=== PATIENT | female | born 1955 | race Caucasian/White ===

== ENCOUNTER 2017-11-17 17:39 | Inpatient (IN) | payer OTHER ==
[~2017-11-17] VITALS: Ht 167.6 cm; Wt 71.2 kg
--- NOTE | ~2017-11-17 | EKG ---
[address] [place] [address] ELECTROCARDIOGRAM REPORT Name: STOENY AGUIAR Room #: 402-P [facility] .R.#: [id number] Admission: 11/17/17 Attend Phys: Adalid Larsen DO Discharge: 11/19/17 Date of : 59 Report #: [id number] THIS REPORT FOR: //name// 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: : 1955 Requested By: Poornima Martínez Order Number: [id number] MD: Angel Elam Measurements Intervals [place] Rate: 74 P: 47 DC: 138 QRS: 34 QRSD: 101 T: 32 QT: 397 QTc: 441 Interpretive Statements Sinus rhythm RSR' in V1 or V2, right VCD Compared to ECG 03/18/2015 11:21:52 RSR' in V1 or V2 now present Sinus bradycardia no longer present Electronically Signed On 11-20-2017 7:47:08 CDT by Angel Elam [email or web address] <ELECTRONICALLY SIGNED> By: Angel Elam MD, [facility] 11/20/17 0747 180 180 Angel Elam MD, [facility] /EPI
[~2017-11-17 17:39] MED LIST: TRAZODONE HCL50 MG PO
[2017-11-17 17:46] VITALS: BP 132/92
[2017-11-17] MEDS ORDERED: TRESIBA FL100 UNIT/1 (17:52)
[2017-11-17] MEDS ORDERED: NOVOLIN R (17:52)
[2017-11-17] MEDS ORDERED: ARMOUR THYROID60 M1 PO (17:53)
[2017-11-17] MEDS ORDERED: METFORMIN HCL500 M2 PO (17:54)
[2017-11-17 18:07] LABS: ABSOLUTE NEUTROPHILS 5.8 thou/uL (1.4-8.2); BASOPHILS 0.7 % (0.0-2.0); HEMATOCRIT 42.7 % (37.0-47.0); HEMOGLOBIN 14.8 gm/dL (12.0-15.0); LYMPHOCYTES 22.4 % (24.0-44.0); MCH 33.7 pg (26.0-34.0); MCHC 34.7 g/dL (28.0-37.0); MCV 97.2 fL (80.0-100.0); MONOCYTES 6.5 % (1.0-8.0); PLATELET COUNT 241 thou/uL (150-400); POLYS 69.4 % (36.0-66.0); RBC 4.39 mil/uL (4.20-5.00); RDW 13.3 % (10.5-14.5); WBC 8.4 thou/uL (4.0-11.0)
[2017-11-17 18:20] LABS: CALCIUM 8.9 mg/dL (8.5-10.1); CREATININE 0.9 mg/dL (0.6-1.0); POTASSIUM 3.6 mmol/L (3.5-5.1)
[2017-11-17 20:01] VITALS: BP 116/74
[2017-11-17 20:40] VITALS: BP 116/74
[2017-11-17 21:09] VITALS: BP 92/55
[2017-11-18 04:00] VITALS: BP 126/78
[2017-11-18 05:58] LABS: CALCIUM 8.2 mg/dL (8.5-10.1); CREATININE 0.7 mg/dL (0.6-1.0); POTASSIUM 3.8 mmol/L (3.5-5.1)
[2017-11-18 07:04] VITALS: BP 103/64
[2017-11-18 16:09] VITALS: BP 105/66
[2017-11-18 20:55] VITALS: BP 94/62
[2017-11-19 04:00] VITALS: BP 93/55
[2017-11-19 05:04] LABS: HEMATOCRIT 35.3 % (37.0-47.0); MCH 33.5 pg (26.0-34.0); MCHC 34.6 g/dL (28.0-37.0); MCV 96.8 fL (80.0-100.0); RBC 3.65 mil/uL (4.20-5.00); RDW 13.2 % (10.5-14.5)
[2017-11-19 05:08] LABS: HEMOGLOBIN 12.2 gm/dL (12.0-15.0)
[2017-11-19 05:15] LABS: CALCIUM 8.1 mg/dL (8.5-10.1); CREATININE 0.7 mg/dL (0.6-1.0)
[2017-11-19 07:20] VITALS: BP 104/60
[2017-11-19] MEDS ORDERED: PEPCID20 MG PO (11:11)
[2017-11-19] MEDS ORDERED: IBUPROFEN 400400 M2 PO (11:11)
[2017-11-19] MEDS ORDERED: DIPHENHIST50 MG PO (11:12)
[2017-11-19] MEDS ORDERED: TRIAMCINOLONE A80 G2 TOP (11:13)
[2017-11-19] MEDS ORDERED: ZOFRAN ODT4 MG DISSOLVE (11:14)
[2017-11-19] MEDS ORDERED: PREDNISONE 10 M10 MG PO (11:17)
[2017-11-19] MEDS ORDERED: ARMOUR THYROID90 M1 PO (11:48)
[2017-11-19 11:50] VITALS: BP 104/60
[2017-11-19 13:49] VITALS: BP 104/60
== END 2017-11-19 14:15 | disposition home or self-care (01) | DRG 916 ==
LOC: ER 17:39 → EROBS 19:45 → 4N 20:25
PROVIDERS: Hospitalist; Nurse Practitioner Family
DX: T78.3XXA Angioneurotic edema, initial encounter (principal); E11.9 Type 2 diabetes mellitus without complications; E03.9 Hypothyroidism, unspecified; X58.XXXA Exposure to other specified factors, initial encounter; Y93.89 Activity, other specified; Y92.89 Other specified places as the place of occurrence of the external cause; Y99.8 Other external cause status; Z87.891 Personal history of nicotine dependence; Z79.4 Long term (current) use of insulin; Z79.899 Other long term (current) drug therapy
CPT/HCPCS: 10790